=== PATIENT | male | born 1990 | race Caucasian/White ===

== ENCOUNTER 2016-10-28 20:20 | Emergency (ER) | payer OTHER ==
[~2016-10-28] VITALS: Ht 172.7 cm; Wt 76.3 kg
[2016-10-28 20:28] VITALS: BP 146/63
--- NOTE | 2016-10-28 20:35 | NUR ---
TO ER [id number]
--- NOTE | 2016-10-28 20:47 | NUR ---
Patient being evaluated by physician.
[2016-10-28 22:10] VITALS: BP 139/66
== END 2016-10-28 21:35 | disposition home or self-care (01) ==
LOC: MED 20:20
DX: S09.90XA Unspecified injury of head, initial encounter (principal); W22.8XXA Striking against or struck by other objects, initial encounter; Y93.89 Activity, other specified; Y92.89 Other specified places as the place of occurrence of the external cause; Y99.8 Other external cause status